=== PATIENT | female | born 1930 | race Caucasian/White ===

== ENCOUNTER → 2016-06-17 | Outpatient (CLI) | payer OTHER ==
[~2016-06-17] MED LIST: ALTACE10 M1 PO; ASA81BEC PO; ASPIRIN EC325 M1 PO; ASPIRIN EC81 M1 PO; ATENOLOL 50 MG50 M1 PO; BYSTOLIC 5 MG5 M1 PO; CALCIUM OYSTER500 MG PO; CARDIZEM CD180 MG PO; CLARITIN10 MG; COUMADIN 1MG TAB1 M1 PO; COZAAR 50 MG TA50 M2 PO; CRESTOR40 MG PO; FISH OIL 1,001000 MG PO; HYDROCODON-ACE1 EAC7 PO; INVOKANA100 MG PO; JANUVIA50 MG; KLOR-CON 10 ER10 MEQ PO; LANOXIN 0.120.125 M1 PO; LASIX 40 MG TAB40 M1 PO; LASIX 40 MG TAB40 MG PO; LEVEMIR SUBQ; LEVOTHYROXINE0.05 MG PO; METFORMIN PO; MOBIC15 MG PO; NEXIUM40 MG PO; NIASPAN ER 101000 M1 PO; NORVASC 5 MG TAB5 MG PO; NOVOPEN 31 EACH SUBQ; PACERONE 200 M200 M1 PO; PRAVACHOL40 MG PO; PRENATAL MULTI1 EAC2 PO; SAVAYSA30 MG PO; SENNA S TABLET1 EACH PO; SYMBICORT160 MCG/4.; VERAPAMIL ER180 MG PO; VITAMIN D1000 UNI1 PO; WELCHOL 625 MG625 MG PO
--- NOTE | ~2016-06-17 | 2DMMODE ---
[facility] [place] [address] 2 D/M-MODE ECHOCARDIOGRAM Name: [address] Room #: REG [facility]#: [id number] Admission: 06/17/16 Attend Phys: Prabhjot Brandon MD Discharge: Date of : 30 Date of Service: 06/17/16 1617 Report #: [id number] THIS REPORT FOR: //name// APPROVED REPORT EXAM: Comprehensive 2D, Doppler, and color-flow Echocardiogram Patient Location: Out-Patient Blood Pressure: 123/57 mmHg HR: 61 bpm Rhythm: NSR Other Information Study Quality: Good Indications Dyspnea Hx: CABG, Afib, HTN, HLP, DM 2D Dimensions RVDd: 40.32 mm LVEF(%): 69.62 (>50%) IVSd: 10.67 (7-11mm) LVOT Diam: 18.31 (18-24mm) LVDd: 41.23 mm PWd: 9.64 (7-11mm) Ascending Aorta: 28.48 mm LVDs: 25.23 (25-40mm) Aortic Root: 29.00 mm Retana's LVEF: 69.62 % Volumes Left Atrial Volume (Systole) Single Plane 4CH: 47.55 mL Single Plane 2CH: 56.95 mL LA ESV Index: 37.00 mL/m2 Aortic Valve AoV Peak Estuardo.: 2.48 m/s AO Peak Gr.: 24.59 mmHg LV Max P.17 mmHg AO V2 VTI: 602.37 mm LV Max: 1.14 m/s Mitral Valve MV PHT: 88.80 ms MV E Max Estuardo.: 1.28 m/s E/A Ratio: 2.5 MV A Estuardo.: 0.51 m/s MV Decel. Time: 306.20 ms [facility] [place] [address] 2 D/M-MODE ECHOCARDIOGRAM Name: [address] Room #: REG [facility]#: [id number] Admission: 06/17/16 Attend Phys: Prabhjot Brandon MD Discharge: Date of : 30 Date of Service: 06/17/16 1617 Report #: [id number] TDI E/Lateral E': 30.00 E/Medial E': 18.00 Pulmonary Valve PV Peak Estuardo.: 1.03 m/s PV Peak Gr.: 4.25 mmHg Tricuspid Valve TR Peak Estuardo.: 3.85 m/s RAP Estimate: 5.00 mmHg TR Peak Gr.: 59.26 mmHg RVSP: 64.00 mmHg Left Ventricle The left ventricle is normal size. There is normal LV segmental wall motion. There is normal left ventricular wall thickness. The left ventricular systolic function is normal. LVEF is 65%. Grade III - reversible restrictive diastolic dysfunction. Right Ventricle Right ventricle is mildly dilated. The right ventricular systolic function is normal. Atria Left atrium is moderately dilated. Right atrium is mildly dilated. Aortic Valve Aortic valve is moderately calcified. Trace aortic regurgitation. Mild aortic stenosis. Mitral Valve Mitral valve leaflets are mildly thickened. Moderate mitral annular calcification. Moderate mitral regurgitation. There is no mitral valve stenosis. Tricuspid Valve The tricuspid valve is normal in structure. There is moderate to severe tricuspid regurgitation. The right atrial pressure is estimated at 5 mmHg. There is moderate pulmonary hypertension with an estimated PAP of 64mmHg. Pulmonic Valve The pulmonary valve is normal in structure. Mild to moderate pulmonic regurgitation. Great Vessels The aortic root is normal in size. The ascending aorta is normal in size. IVC is normal in size and collapses >50% with [facility] [address] [place] [address] 2 D/M-MODE ECHOCARDIOGRAM Name: [address] Room #: REG [facility]#: [id number] Admission: 06/17/16 Attend Phys: Prabhjot Brandon MD Discharge: Date of : 30 Date of Service: 06/17/16 1617 Report #: [id number] inspiration. Pericardium There is no pericardial effusion. <Conclusion> The left ventricular systolic function is normal. Biatrial enlargement LVEF 65%. There is normal LV segmental wall motion. Aortic valve is moderately calcified, mild stenosis, trace aortic regurgitation. Mitral valve leaflets are mildly thickened, moderate mitral annular calcification. Moderate mitral regurgitation. There is moderate to severe tricuspid regurgitation. The right atrial pressure is estimated at 5 mmHg. There is moderate pulmonary hypertension with an estimated PAP of 65mmHg. There is no pericardial effusion. <ELECTRONICALLY SIGNED> By: Kyrie Chu MD, FACC 06/17/16 161 16 16 Kyrie Chu MD, FACC /INF
== END ==
LOC: CV 12:27
DX: R06.02 Shortness of breath (principal)

== ENCOUNTER 2016-09-23 20:48 | Inpatient (IN) | payer OTHER ==
[~2016-09-23] VITALS: Ht 149.9 cm; Wt 54.9 kg
--- NOTE | ~2016-09-23 | S ---
[facility] [place] [address] SURGICAL PATH RPT PROCEDURE Name: [address] Room #: 443-P DIS IN M.R.#: [id number] Admission: 09/23/16 Date of : 30 Discharge: 09/27/16 Report #: [id number] Path Case #: [id number] PATHOLOGY REPORT COLLECTION DATE: 09/26/2016 RECEIVED DATE: 09/26/2016 SUBMITTING PHYS: Dr. Teodoro Wise OTHER PHYS: Dr. Gabbie Santos SPECIMEN(S) RECEIVED: A.Bx of antrum * * * * * * * * * * * * FINAL DIAGNOSIS: Gastric mucosa, antrum, endoscopic biopsy: - Mild reactive gastropathy. - Negative for intestinal metaplasia or atrophy. - Negative for Helicobacter pylori. COMMENT: Helicobacter pylori immunohistochemical stain performed on block A1- negative. (IUV:pit; 09/29/2016) PATHOLOGIST: Yuliana De Santiago M.D. REPORT ELECTRONICALLY SIGNED BY: Yuliana De Santiago M.D. DATE/TIME: 09/29/2016 16:10 * * * * * * * * * * * * GROSS PATHOLOGY: Received in formalin labeled "[address]iel[address], biopsy of antrum," is a segment of myers soft tissue measuring 0.5 cm in maximum dimension. The specimen is submitted entirely in cassette A1. (KAH; 09/27/2016) CLINICAL HISTORY: Anemia, hematemesis INITIAL CPT CODE(S): A; 50332, 16838 Professional services performed by [facility] at [facility] [address], [place] [address] [facility] [address] [place] [address] SURGICAL PATH RPT PROCEDURE Name: [address] Room #: 443-P DIS IN M.R.#: [id number] Admission: 09/23/16 Date of : 30 Discharge: 09/27/16 Report #: [id number] Path Case #: [id number] Technical services performed by [facility] at [address] [place] [address], [facility] [address], [place] [address]. [facility] [address] [address] PHONE: [phone] DIRECTOR: Dean Platt M.D. * * * END OF REPORT * * *
[2016-09-23 20:52] VITALS: BP 155/43
[2016-09-23 21:32] LABS: ABSOLUTE NEUTROPHILS 3.2 thou/uL (1.4-8.2); BASOPHILS 0.3 % (0.0-2.0); EOSINOPHILS 1.8 % (0.0-3.0); HEMATOCRIT 22.5 % (37.0-47.0); HEMOGLOBIN 7.6 gm/dL (12.0-15.0); LYMPHOCYTES 19.6 % (24.0-44.0); MCH 34.1 pg (26.0-34.0); MCHC 33.8 g/dL (28.0-37.0); MCV 100.8 fL (80.0-100.0); MONOCYTES 9.2 % (1.0-8.0); POLYS 69.1 % (36.0-66.0); RBC 2.24 mil/uL (4.20-5.00); RDW 15.5 % (10.5-14.5); WBC 4.7 thou/uL (4.0-11.0)
[2016-09-23 21:38] LABS: CALCIUM 8.7 mg/dL (8.5-10.1); CREATININE 2.4 mg/dL (0.6-1.0); POTASSIUM 4.7 mmol/L (3.5-5.1)
[2016-09-23 21:43] LABS: ALBUMIN 3.6 g/dL (3.4-5.0); TOTAL BILIRUBIN 0.4 mg/dL (<0.1-1.0); TOTAL PROTEIN 7.2 g/dL (6.4-8.2)
[2016-09-23 21:55] LABS: MANUAL DIFF NO
[2016-09-23 22:32] LABS: PLATELET COUNT 75 thou/uL (150-400)
[2016-09-23 23:11] VITALS: BP 154/93
[2016-09-23 23:45] VITALS: BP 152/37
[2016-09-24 03:55] VITALS: BP 114/36
[2016-09-24 06:35] LABS: HEMATOCRIT 21.8 % (37.0-47.0); HEMOGLOBIN 7.3 gm/dL (12.0-15.0)
[2016-09-24 06:59] LABS: CALCIUM 8.7 mg/dL (8.5-10.1); CREATININE 2.2 mg/dL (0.6-1.0); POTASSIUM 4.6 mmol/L (3.5-5.1)
[2016-09-24 07:15] VITALS: BP 114/43
[2016-09-24 10:43] LABS: FOLIC ACID 34.6 ng/mL (8.6-58.9)
[2016-09-24 12:40] VITALS: BP 114/41; BP 131/35
[2016-09-24 13:03] LABS: % SATURATION 13 % (20-39); IRON 41 ug/dL (50-170); TIBC 308 ug/dL (250-450); UIBC 267 ug/dL
[2016-09-24 13:31] LABS: HEMATOCRIT 20.4 % (37.0-47.0)
[2016-09-24 13:35] LABS: HEMOGLOBIN 6.8 gm/dL (12.0-15.0)
[2016-09-24 16:41] VITALS: BP 145/56
[2016-09-24 17:17] LABS: HEMATOCRIT 26.9 % (37.0-47.0)
[2016-09-24 17:23] LABS: HEMOGLOBIN 9.2 gm/dL (12.0-15.0)
[2016-09-24 20:10] VITALS: BP 128/35
[2016-09-24 21:16] LABS: HEMATOCRIT 26.2 % (37.0-47.0); HEMOGLOBIN 9.1 gm/dL (12.0-15.0)
[2016-09-25 00:10] LABS: HEMOGLOBIN 9.2 gm/dL (12.0-15.0)
[2016-09-25 05:37] VITALS: BP 133/43
[2016-09-25 09:02] VITALS: BP 142/41
[2016-09-25 09:39] LABS: HEMATOCRIT 25.9 % (37.0-47.0); HEMOGLOBIN 8.9 gm/dL (12.0-15.0)
[2016-09-25 15:55] VITALS: BP 121/44
[2016-09-25 16:36] LABS: HEMATOCRIT 29.8 % (37.0-47.0); HEMOGLOBIN 10.1 gm/dL (12.0-15.0)
[2016-09-25 20:00] VITALS: BP 142/48
[2016-09-26 04:20] VITALS: BP 122/56
[2016-09-26 05:57] LABS: HEMATOCRIT 24.8 % (37.0-47.0); HEMOGLOBIN 8.4 gm/dL (12.0-15.0); MCH 33.5 pg (26.0-34.0); MCHC 33.9 g/dL (28.0-37.0); MCV 98.9 fL (80.0-100.0); RBC 2.51 mil/uL (4.20-5.00); RDW 15.2 % (10.5-14.5); WBC 3.6 thou/uL (4.0-11.0)
[2016-09-26 06:10] LABS: ALBUMIN 2.9 g/dL (3.4-5.0); CALCIUM 8.7 mg/dL (8.5-10.1); CREATININE 1.7 mg/dL (0.6-1.0); PHOSPHORUS 3.7 mg/dL (2.5-4.9); POTASSIUM 4.3 mmol/L (3.5-5.1)
[2016-09-26 08:50] VITALS: BP 124/42
[2016-09-26 09:33] LABS: ABSOLUTE RETIC COUNT 0.0765 10^6/uL; OBSERVED RETIC COUNT 3.03 % (0.6-2.6)
[2016-09-26 15:48] VITALS: BP 143/40
[2016-09-26 20:23] VITALS: BP 154/48
[2016-09-27 04:06] VITALS: BP 142/50
[2016-09-27 08:20] VITALS: BP 148/48
[2016-09-27] MEDS ORDERED: PROTONIX40 M1 PO (09:13)
[2016-09-27 09:32] VITALS: BP 148/48
== END 2016-09-27 10:30 | disposition home or self-care (01) | DRG 377 ==
LOC: ER 20:48 → 2N 22:44 → EROBS 22:44 → 2N 23:19 → 4S 09-24 14:05
PROVIDERS: Hospitalist; Internal Medicine Gastroenterology; Nurse Practitioner Acute Care; Physician Assistant
DX: K92.1 Melena (principal); N17.0 Acute kidney failure with tubular necrosis; J96.10 Chronic respiratory failure, unspecified whether with hypoxia or hypercapnia; I13.0 Hypertensive heart and chronic kidney disease with heart failure and stage 1 through stage 4 chronic kidney disease, or unspecified chronic kidney disease; I50.32 Chronic diastolic (congestive) heart failure; D61.818 Other pancytopenia; K25.4 Chronic or unspecified gastric ulcer with hemorrhage; E03.9 Hypothyroidism, unspecified; K64.8 Other hemorrhoids; K44.9 Diaphragmatic hernia without obstruction or gangrene; E78.5 Hyperlipidemia, unspecified; M19.90 Unspecified osteoarthritis, unspecified site; J44.9 Chronic obstructive pulmonary disease, unspecified; I25.10 Atherosclerotic heart disease of native coronary artery without angina pectoris; I48.0 Paroxysmal atrial fibrillation; K25.9 Gastric ulcer, unspecified as acute or chronic, without hemorrhage or perforation; K57.30 Diverticulosis of large intestine without perforation or abscess without bleeding; K29.70 Gastritis, unspecified, without bleeding; I35.0 Nonrheumatic aortic (valve) stenosis; I27.2 Other secondary pulmonary hypertension; E11.22 Type 2 diabetes mellitus with diabetic chronic kidney disease; N18.3 Chronic kidney disease, stage 3 (moderate); R13.10 Dysphagia, unspecified; T46.0X5A Adverse effect of cardiac-stimulant glycosides and drugs of similar action, initial encounter; Z90.710 Acquired absence of both cervix and uterus; I25.2 Old myocardial infarction; Z95.1 Presence of aortocoronary bypass graft; Z88.0 Allergy status to penicillin; Z98.49 Cataract extraction status, unspecified eye; Z91.048 Other nonmedicinal substance allergy status; Z88.2 Allergy status to sulfonamides; Z80.3 Family history of malignant neoplasm of breast; Z88.8 Allergy status to other drugs, medicaments and biological substances; Z91.041 Radiographic dye allergy status; Z87.11 Personal history of peptic ulcer disease
CPT/HCPCS: 10081; 10102; 62110; 62900; 70005

== ENCOUNTER 2016-10-31 19:37 | Inpatient (IN) | payer OTHER ==
[~2016-10-31] VITALS: Ht 149.9 cm; Wt 52.8 kg
--- NOTE | ~2016-10-31 | EKG ---
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
--- NOTE | ~2016-10-31 | S ---
[facility] [place] [address] SURGICAL PATH RPT PROCEDURE Name: [address] Room #: 450-P DIS IN M.R.#: [id number] Admission: 10/31/16 Date of : 30 Discharge: 11/05/16 Report #: [id number] Path Case #: [id number] PATHOLOGY REPORT COLLECTION DATE: 11/03/2016 RECEIVED DATE: 11/05/2016 SUBMITTING PHYS: Dr. Clarisa Damian OTHER PHYS: Dr. Jose Nash SPECIMEN(S) RECEIVED: A.Peripheral smear * * * * * * * * * * * * FINAL DIAGNOSIS: Peripheral blood smear: - Pancytopenia including exvm-gd-wohijnrx normocytic and macrocytic anemia, mild leukopenia and moderate thrombocytopenia (see comment). COMMENT: Overall, the peripheral blood has pancytopenia including devl-fb-qoqifblu normocytic and macrocytic anemia, mild leukopenia and moderate thrombocytopenia. The etiology of the findings is unclear based entirely on slide review. Potential causes of pancytopenia include infections, drug reactions and primary bone marrow disorders, such as myelodysplasia. Correlation with clinical history and additional laboratory data is recommended. (CLW:brandon; 11/06/2016) PATHOLOGIST: Bhumi Murphy M.D. REPORT ELECTRONICALLY SIGNED BY: Bhumi Murphy M.D. DATE/TIME: 11/06/2016 20:28 * * * * * * * * * * * * MICROSCOPIC DESCRIPTION: CBC Data (11/03/16): WBC 3,800 /uL, RBC 2.98, hemoglobin 9.9 g/dL, hematocrit 28.4%, MCV 95.1 fL (delta of 102.4 fL), MCH 33.1 pg, MCHC 34.8 g/dL, RDW 17.9%. Platelet count 63,000 / uL. Automated white blood cell differential: segs 71.3%, lymphs 14.3%, monos 11.5%, and eos 1.7%, and basos 1.2%. Peripheral Blood Smear: Cytomorphological examination of the Cha's stained peripheral blood smear confirms the provided data. Red blood cells show gzcp-wp-jozfeftq normocytic and macrocytic anemia with mild anisocytosis. Red blood cells have a dimorphic population. [address] [address] SURGICAL PATH RPT PROCEDURE Name: [address] Room #: 450-P [facility] IN M.R.#: [id number] Admission: 10/31/16 Date of : 30 Discharge: 11/05/16 Report #: [id number] Path Case #: [id number] schistocytes or microspherocytes are seen. White blood cells are mildly decreased in number. They are predominantly segmented neutrophils and are without significant left shift. They have minimal abnormalities including occasional hypogranular forms and rare abnormal nuclear lobation. No blasts or Gary rods are seen. Lymphocytes are predominantly small, round, and mature appearing with condensed chromatin and scant cytoplasm with admixed large granular lymphocytes. On scanning, no markedly atypical lymphoid cells are seen. Monocytes are mature. Platelets are moderately decreased in number and mainly normal in morphology with rare larger platelets noted. GROSS PATHOLOGY: Received are two Cha stained peripheral blood smears, labeled, Lorrie Mariela. CLINICAL HISTORY: This is an 86 year-old woman with pancytopenia. Morphologic review of the peripheral blood smears requested by the patient's physician. INITIAL CPT CODE(S): A; NC Professional services performed by [facility] at [facility] [address], [place] [address] Technical services performed by [facility] at [address] [place] [address], [address], [place] [address]. [facility] [address] [place] [address] PHONE: [phone] DIRECTOR: Dean Platt M.D. * * * END OF REPORT * * *
--- NOTE | ~2016-10-31 | HC ---
[facility] [place] [address] CONSULTATION Name: [address] Room #: 450- ADM IN M.R.#: [id number] Admission: 10/31/16 Attend Phys: Saad Holliday MD Discharge: Date of : 30 Report #: [id number] THIS REPORT FOR: //name// CC: Marek Santos DATE OF SERVICE: 10/31/2016 HISTORY OF PRESENT ILLNESS: The patient is an 86-year-old female with a previous history of peptic ulcer disease, began having melanotic stools recently. However, she is also on oral iron supplements. She has been on Savaysa. Her last dose was the day before yesterday. She takes this for history of congestive heart failure. She has been feeling weak and somewhat dizzy. She does report some abdominal pain. She actually underwent an EGD and colonoscopy by my partner, Dr. Luis Angel Wise, on 09/26/2016 in which she presented with a GI bleed at that time. Colonoscopy showed diverticulosis, no active bleeding, internal hemorrhoids. Upper endoscopy showed several gastric erosions and linear ulcerations, no signs of bleeding at that time. The patient has been taking Prevacid b.i.d. reportedly. Biopsies were obtained to rule out H. pylori, which were negative. The patient's hemoglobin on admission was 8.0 yesterday, dropped to 6.8. She is going to be transfused 2 units of packed cells today, which have been ordered. Her hemoglobin on last admission was in the 8-9 range. She denies any chest pain or shortness of breath currently. She denies any fevers or chills. PAST MEDICAL HISTORY: Previous history of GI bleed, recent EGD and colonoscopy as described above, anemia, history of atrial fibrillation, congestive heart failure. History of hypertension, coronary artery disease status post CABG, asthma, hyperlipidemia, hypothyroidism, arthritis, COPD, pulmonary hypertension. ALLERGIES: HEPARIN AGENTS, IODINE, SULFA, ADHESIVE TAPE AND PENICILLIN. MEDICATIONS: On admission, Protonix 40 b.i.d., vitamin D, Welchol, Cozaar, Synthroid, Claritin, Bystolic, Tradjenta, Lasix, , Savaysa and Symbicort. FAMILY HISTORY: Negative for colon cancer. SOCIAL HISTORY: She denies any tobacco or alcohol use. REVIEW OF SYSTEMS: As per HPI. PHYSICAL EXAMINATION: VITAL SIGNS: Temperature is 98.2, pulse 72, blood pressure 117/32, [place] [address] [address] CONSULTATION Name: [address] Room #: [address] [place] [address] IN M.R.#: [id number] Admission: 10/31/16 Attend Phys: Saad Holliday MD Discharge: Date of : 30 Report #: [id number] GENERAL: She is alert and oriented x 3, in no acute distress. HEENT: Sclerae nonicteric. Oropharynx is clear. NECK: Supple, without lymphadenopathy. CARDIOVASCULAR: Irregularly irregular. CHEST: Clear to auscultation bilaterally. ABDOMEN: Soft. She is mildly tender to palpation in the midepigastrium and periumbilical region. Nondistended, positive bowel sounds. EXTREMITIES: No cyanosis, clubbing or edema. LABORATORY DATA: Sodium 145, potassium 4.4, chloride 114, bicarbonate 19. BUN 52, creatinine 1.9. AST 19, total bilirubin 0.3, calcium 8.6, alkaline phosphatase 74, ALT is 20, albumin 3.0. WBC is 2.8. Hemoglobin 6.8, again this had dropped from 8.0 on admission. It was 8.4 on 09/26/2016, MCV is 102.4, and platelet count is 69. ASSESSMENT AND PLAN: 1. Gastrointestinal bleed, suspect upper etiology. The patient has been on anticoagulation, which has now been held. Agree with transfusion, which has been ordered. We will recommend proceeding with an upper endoscopy today for further evaluation. The patient has had a recent EGD, colonoscopy as described above. We will make further recommendations after endoscopy. Thank you for allowing me to participate in her care. <ELECTRONICALLY SIGNED> By: Marek Lamb MD 11/01/16 1816 1058 1133 Marek Lamb MD /nt
[~2016-10-31 19:37] MED LIST changes: +PROTONIX40 M1 PO
[2016-10-31 19:55] VITALS: BP 174/48
[2016-10-31 20:47] LABS: MCH 34.8 pg (26.0-34.0); MCHC 33.5 g/dL (28.0-37.0); MCV 103.9 fL (80.0-100.0); RBC 2.31 mil/uL (4.20-5.00); RDW 16.1 % (10.5-14.5); WBC 3.8 thou/uL (4.0-11.0)
[2016-10-31 20:48] LABS: MANUAL DIFF YES
[2016-10-31 20:49] LABS: PLATELET COUNT 84 thou/uL (150-400)
[2016-10-31 20:51] LABS: CREATININE 2.4 mg/dL (0.6-1.0); POTASSIUM 5.9 mmol/L (3.5-5.1)
[2016-10-31 20:57] LABS: ALBUMIN 3.7 g/dL (3.4-5.0); TOTAL BILIRUBIN 0.3 mg/dL (<0.1-1.0); TOTAL PROTEIN 7.5 g/dL (6.4-8.2)
[2016-10-31 21:11] LABS: ABSOLUTE NEUTROPHILS 2.6 thou/uL (1.4-8.2); ANISOCYTOSIS 1+; LARGE PLATELETS RARE; MACROCYTES 1+; TOTAL CELL COUNT 100
[2016-11-01] VITALS (8 sets, daily range): BP systolic 117–189; BP diastolic 32–68
[2016-11-01] MEDS ORDERED: TRADJENTA5 MG (01:32)
[2016-11-01] MEDS ORDERED: LASIX 40 MG TAB40 M2 PO (01:33)
[2016-11-01] MEDS ORDERED: MULTAQ400 MG PO (01:36)
[2016-11-01] MEDS ORDERED: SAVAYSA30 MG PO (01:36)
[2016-11-01 08:13] LABS: RDW 16.1 % (10.5-14.5); WBC 2.8 thou/uL (4.0-11.0)
[2016-11-01 08:14] LABS: MCH 35.2 pg (26.0-34.0); MCHC 34.3 g/dL (28.0-37.0); MCV 102.4 fL (80.0-100.0); RBC 1.95 mil/uL (4.20-5.00)
[2016-11-01 08:19] LABS: HEMOGLOBIN 6.8 gm/dL (12.0-15.0)
[2016-11-01 08:20] LABS: HEMATOCRIT 19.9 % (37.0-47.0)
[2016-11-01 08:31] LABS: CALCIUM 8.6 mg/dL (8.5-10.1); CREATININE 1.9 mg/dL (0.6-1.0); PHOSPHORUS 3.9 mg/dL (2.5-4.9)
[2016-11-01 08:34] LABS: POTASSIUM 4.4 mmol/L (3.5-5.1)
[2016-11-02] VITALS (7 sets, daily range): BP systolic 124–187; BP diastolic 42–70
[2016-11-03 04:06] VITALS: BP 173/54
[2016-11-03 06:12] LABS: ABSOLUTE NEUTROPHILS 2.7 thou/uL (1.4-8.2); BASOPHILS 1.2 % (0.0-2.0); EOSINOPHILS 1.7 % (0.0-3.0); HEMATOCRIT 28.4 % (37.0-47.0); HEMOGLOBIN 9.9 gm/dL (12.0-15.0); LYMPHOCYTES 14.3 % (24.0-44.0); MCH 33.1 pg (26.0-34.0); MCHC 34.8 g/dL (28.0-37.0); MONOCYTES 11.5 % (1.0-8.0); POLYS 71.3 % (36.0-66.0); RBC 2.98 mil/uL (4.20-5.00); RDW 17.9 % (10.5-14.5); WBC 3.8 thou/uL (4.0-11.0)
[2016-11-03 06:17] LABS: MCV 95.1 fL (80.0-100.0)
[2016-11-03 06:18] LABS: MANUAL DIFF NO
[2016-11-03 06:25] LABS: CALCIUM 8.3 mg/dL (8.5-10.1); CREATININE 1.3 mg/dL (0.6-1.0); POTASSIUM 3.7 mmol/L (3.5-5.1)
[2016-11-03 07:26] VITALS: BP 151/57
[2016-11-03 07:41] LABS: ANISOCYTOSIS 1+; PLATELET COUNT 63 thou/uL (150-400)
[2016-11-03 07:42] LABS: LARGE PLATELETS FEW
[2016-11-03 12:01] VITALS: BP 178/59
[2016-11-03 15:45] VITALS: BP 171/57
[2016-11-03 19:32] VITALS: BP 148/52
[2016-11-04 04:40] VITALS: BP 151/57
[2016-11-04 06:57] VITALS: BP 178/60
[2016-11-04 13:23] VITALS: BP 155/63
[2016-11-04 16:11] VITALS: BP 134/42
[2016-11-04 19:12] VITALS: BP 166/57
[2016-11-05 04:16] VITALS: BP 156/61
[2016-11-05 07:07] VITALS: BP 178/63
[2016-11-05 10:35] VITALS: BP 178/63
[2016-11-05 11:18] VITALS: BP 170/61
[2016-11-05 11:42] LABS: % SATURATION 30 % (20-39); IRON 63 ug/dL (50-170); TIBC 207 ug/dL (250-450); UIBC 144 ug/dL
[2016-11-05 12:04] LABS: OBSERVED RETIC COUNT 2.62 % (0.6-2.6)
[2016-11-06 00:06] LABS: HEPATITIS C VIRUS AB <0.1 (0.0-0.9); HIV ANTIBODY Non Reactive (Non Reactive)
[2016-11-07 14:08] LABS: A/G RATIO 1.2 (0.7-1.7); ALBUMIN 3.3 g/dL (2.9-4.4); ALPHA 1 0.3 g/dL (0.0-0.4); ALPHA 2 0.8 g/dL (0.4-1.0); BETA 0.9 g/dL (0.7-1.3); GAMMA 0.6 g/dL (0.4-1.8); M-SPIKE Not Observed g/dL (Not Observed)
== END 2016-11-05 12:00 | disposition home or self-care (01) | DRG 377 ==
LOC: ER 19:37 → EROBS 23:01 → 4W 23:01
PROVIDERS: Family Medicine; Internal Medicine Hematology & Oncology; Nurse Practitioner Family; Physician Assistant
PROC: 0DJ08ZZ Inspection of Upper Intestinal Tract, Via Natural or Artificial Opening Endoscopic (ICD-10-PCS; 2016-11-01)
PROC: 30233N1 Transfusion of Nonautologous Red Blood Cells into Peripheral Vein, Percutaneous Approach (ICD-10-PCS; principal; 2016-11-02)
DX: K92.1 Melena (principal); N17.0 Acute kidney failure with tubular necrosis; I13.0 Hypertensive heart and chronic kidney disease with heart failure and stage 1 through stage 4 chronic kidney disease, or unspecified chronic kidney disease; I25.10 Atherosclerotic heart disease of native coronary artery without angina pectoris; E78.5 Hyperlipidemia, unspecified; E03.9 Hypothyroidism, unspecified; M19.90 Unspecified osteoarthritis, unspecified site; J44.9 Chronic obstructive pulmonary disease, unspecified; I48.0 Paroxysmal atrial fibrillation; Z77.22 Contact with and (suspected) exposure to environmental tobacco smoke (acute) (chronic); D64.9 Anemia, unspecified; N18.9 Chronic kidney disease, unspecified; I50.9 Heart failure, unspecified; E11.22 Type 2 diabetes mellitus with diabetic chronic kidney disease; I27.2 Other secondary pulmonary hypertension; E87.5 Hyperkalemia; Z90.710 Acquired absence of both cervix and uterus; I25.2 Old myocardial infarction; Z95.1 Presence of aortocoronary bypass graft; Z98.42 Cataract extraction status, left eye; Z98.41 Cataract extraction status, right eye; Z87.11 Personal history of peptic ulcer disease; Z79.899 Other long term (current) drug therapy; Z91.041 Radiographic dye allergy status; Z88.0 Allergy status to penicillin; Z88.8 Allergy status to other drugs, medicaments and biological substances; Z88.2 Allergy status to sulfonamides; Z91.09 Other allergy status, other than to drugs and biological substances; Z85.828 Personal history of other malignant neoplasm of skin; Z80.3 Family history of malignant neoplasm of breast; Z79.4 Long term (current) use of insulin
CPT/HCPCS: 10040; 62110; 62900

== ENCOUNTER 2017-07-06 14:34 | Emergency (ER) | payer OTHER ==
[~2017-07-06] VITALS: Ht 149.9 cm; Wt 51.3 kg
[~2017-07-06 14:34] MED LIST changes: +LASIX 40 MG TAB40 M2 PO; +MULTAQ400 MG PO; +TRADJENTA5 MG
[2017-07-06] MEDS ORDERED: NORCO 5-325 TA1 EACH PO (15:27)
== END 2017-07-06 15:43 | disposition home or self-care (01) ==
LOC: ER 14:34
DX: S76.111A Strain of right quadriceps muscle, fascia and tendon, initial encounter (principal); I11.0 Hypertensive heart disease with heart failure; I50.9 Heart failure, unspecified; E11.9 Type 2 diabetes mellitus without complications; E78.5 Hyperlipidemia, unspecified; J44.9 Chronic obstructive pulmonary disease, unspecified; I25.810 Atherosclerosis of coronary artery bypass graft(s) without angina pectoris; M19.90 Unspecified osteoarthritis, unspecified site; E03.9 Hypothyroidism, unspecified; Z88.0 Allergy status to penicillin; Z88.2 Allergy status to sulfonamides; Z88.8 Allergy status to other drugs, medicaments and biological substances; W01.0XXA Fall on same level from slipping, tripping and stumbling without subsequent striking against object, initial encounter; Y93.89 Activity, other specified; Y92.89 Other specified places as the place of occurrence of the external cause; Y99.8 Other external cause status

== ENCOUNTER → 2017-07-09 | Outpatient (CLI) | payer OTHER ==
[~2017-07-09] MED LIST changes: +NORCO 5-325 TA1 EACH PO
== END ==
LOC: RAD 12:05
DX: J45.31 Mild persistent asthma with (acute) exacerbation (principal); R06.09 Other forms of dyspnea; Z88.8 Allergy status to other drugs, medicaments and biological substances; Z91.041 Radiographic dye allergy status; Z88.0 Allergy status to penicillin; Z88.2 Allergy status to sulfonamides

== ENCOUNTER 2018-02-17 16:24 | Inpatient (IN) | payer OTHER ==
[~2018-02-17] VITALS: Ht 149.9 cm; Wt 53.5 kg
--- NOTE | ~2018-02-17 | EKG ---
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1930 Requested By: Kyrie Chu Order Number: [id number] MD: Kyrie Chu Measurements Intervals [place] Rate: 97 P: [place]: QRS: 31 QRSD: 95 T: 37 QT: 362 QTc: 460 Interpretive Statements Atrial fibrillation Nonspecific T wave abnormality Abnormal R-wave progression, early transition Compared to ECG 02/18/2018 06:29:42 No significant changes Electronically Signed On 02-19-2018 9:49:38 RADIO ENGINEERING TEACHER by Kyrie Chu [email or web address] <ELECTRONICALLY SIGNED> By: Kyrie Chu MD, [facility] 02/19/18 0949 2 Kyrie Chu MD, FAC /EPI
--- NOTE | ~2018-02-17 | EKG ---
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 : 1930 Requested By: Ami Lindsey Order Number: [id number] MD: Kyrie Chu Measurements Intervals [place] Rate: 110 P: [place]: QRS: 41 QRSD: 79 T: 79 QT: 324 QTc: 439 Interpretive Statements Atrial fibrillation Borderline T abnormalities, anterior leads Compared to ECG 02/10/2017 15:28:55 T-wave abnormality now present Sinus rhythm no longer present Electronically Signed On 02-18-2018 10:47:56 FLOOR INSPECTOR by Kyrie Chu [email or web address] <ELECTRONICALLY SIGNED> By: Kyrie Chu MD, [facility] 02/18/18 1047 170 05 Kyrie Chu MD, [facility] /EPI
--- NOTE | ~2018-02-17 | HC ---
[facility] [place] [address] CONSULTATION Name: [address] Room #: 220-P [facility] IN M.R.#: [id number] Admission: 02/17/18 Attend Phys: Zachariah Bacon MD Discharge: 02/19/18 Date of : 30 Report #: [id number] THIS REPORT FOR: //name// CC: Zachariah Santos REASON FOR CONSULTATION: Atrial fibrillation and chest pain. HISTORY OF PRESENT ILLNESS: The patient is an 87-year-old woman with a complicated history including 5-vessel bypass in 2011; severe COPD, advanced chronic kidney disease, diabetes, paroxysmal atrial fibrillation and myelodysplasia for which she is on chemotherapy. She now presents with midsternal chest pain and palpitations. On presentation, she was found to be in atrial fibrillation with a rapid ventricular response. Troponins were minimally elevated. With rate control, her chest pain has resolved. She did have a nonischemic stress study in 03/2017. Her ejection fraction is normal by echocardiography in 10/2017 with severe biatrial enlargement, moderate aortic valve sclerosis with sopt-fi-towlfbnh aortic stenosis and moderate mitral regurgitation. She had been maintained on Savaysa, although this was discontinued due to recurrent bleeding including a gastric ulcer and what I believe is diverticular bleeding last year. Anticoagulant therapy in light of her recurrent anemia and transfusions is thought to represent a prohibitively high risk. She denies orthopnea or paroxysmal nocturnal dyspnea. No history of near syncope or syncope. Allery: included adhesives, enoxaparin, heparin, iodine, penicillin, statins and sulfa. MEDICINES: Include Welchol 3 tablets twice a day; dronedarone 400 mg twice daily, she has been off of this for the past month; levothyroxine 75 mcg daily; Tradjenta; Cozaar 100 mg daily; Bystolic 10 mg daily; Protonix; potassium and torsemide 40 mg twice daily. PAST MEDICAL HISTORY: Has been reviewed and includes a history of bypass surgery, left hip replacement, hysterectomy, laparoscopic colon resection, severe COPD, dyslipidemia, hypothyroidism, myelodysplasia, cervical spondylosis and diabetes. SOCIAL HISTORY: She is a nonsmoker. She cares for her who is on hospice at home. FAMILY HISTORY: Noncontributory. REVIEW OF SYSTEMS: All systems negative except as that noted above. PHYSICAL EXAMINATION: [facility] [address] [place] [address] CONSULTATION Name: [address] Room #: 220-P [facility] IN M.R.#: [id number] Admission: 02/17/18 Attend Phys: Zachariah Bacon MD Discharge: 02/19/18 Date of : 30 Report #: [id number] GENERAL: Reveals a pleasant woman who is in no distress. VITAL SIGNS: Blood pressure is 138/60, heart rate of 78 and irregular, respirations unlabored at 18. HEENT: There are neither xanthelasma, subcutaneous xanthomata, oral mucosal or digital cyanosis or kyphoscoliosis present. CHEST: Reveals diminished breath sounds at both bases. CARDIAC: Reveals an irregularly irregular rhythm with normal S1 and S2. A 2/6 systolic murmur at the base. ABDOMEN: Soft and nontender. EXTREMITIES: Without cyanosis, clubbing or edema. Radial pulses are 2+. NEUROLOGIC: She is alert with a nonfocal exam. LABORATORY DATA: EKG: Atrial fibrillation with a moderate ventricular response. Venous Doppler was negative for clot. Chest x-ray: Cardiomegaly. Sodium 140, potassium 5.0 and creatinine 2.1. ProBNP of 7000. Troponin 0.8. White count 2.0, hemoglobin 8, hematocrit 24 and platelet count 49. IMPRESSION: 1. Atrial fibrillation with a rapid ventricular response. 2. Coronary artery disease with prior bypass in 2001 with recent nonischemic stress study in 03/2017. 3. Elevated troponin consistent with type 2 DC in the setting of anemia, atrial fibrillation, renal failure and COPD. 4. Peptic ulcer disease; diverticulosis. 5. Myelodysplastic syndrome; pancytopenia. 6. Chronic kidney disease, stage 4. 7. Severe COPD with history of pulmonary hypertension. 8. Chronic diastolic heart failure; mild to moderate , moderate MR. 9. Diabetes. 10 Hypercoagulable. RECOMMENDATIONS: 1. Cardizem for rate control. Resume dronedarone. 2. This atrial fibrillation may have been precipitated by her being off of antiarrhythmic therapy for the past several weeks. 3. History of gastrointestinal bleeding in the past makes reinstitution of anticoagulants problematic and probably contraindicated. She has received multiple blood transfusions within the past year. Thank you for asking me to participate in this complicated woman. <ELECTRONICALLY SIGNED> By: Kyrie Chu MD, [facility] 02/22/18 0823 0945 1019 Kyrie Chu MD, FACC /nt
--- NOTE | ~2018-02-17 | EKG ---
[address] [address] ELECTROCARDIOGRAM REPORT Name: [address] Room #: 215-P ADM IN M.R.#: [id number] Admission: 02/17/18 Attend Phys: Zachariah Bacon MD Discharge: Date of : 30 Report #: [id number] THIS REPORT FOR: //name// 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
[2018-02-17 16:29] VITALS: BP 115/44
[2018-02-17 17:22] LABS: BE(vivo) -2.3 mmol/L (-2 to +3); HCO3 22.3 mmol/L (22.0-26.0); PO2 75.3 mmHg (80.0-100.0); pH 7.387 (7.360-7.450)
[2018-02-17 17:45] LABS: HEMOGLOBIN 10.6 gm/dL (12.0-15.0); MCH 34.4 pg (26.0-34.0); MCHC 34.2 g/dL (28.0-37.0); MCV 100.8 fL (80.0-100.0); RBC 3.08 mil/uL (4.20-5.00); RDW 17.9 % (10.5-14.5); WBC 2.8 thou/uL (4.0-11.0)
[2018-02-17 17:54] LABS: PROTIME 10.7 Seconds (9.3-11.4)
[2018-02-17 17:58] LABS: CALCIUM 9.3 mg/dL (8.5-10.1); CREATININE 2.3 mg/dL (0.6-1.0); POTASSIUM 4.9 mmol/L (3.5-5.1)
[2018-02-17 18:06] LABS: ALBUMIN 3.7 g/dL (3.4-5.0); TOTAL BILIRUBIN 0.3 mg/dL (<0.1-1.0); TOTAL PROTEIN 6.9 g/dL (6.4-8.2)
[2018-02-17 18:13] LABS: TROPONIN-I 1.07 ng/mL (<0.06)
[2018-02-17 18:28] LABS: ABSOLUTE NEUTROPHILS 1.9 thou/uL (1.4-8.2)
[2018-02-17 18:30] LABS: LARGE PLATELETS FEW; PLATELET COUNT 55 thou/uL (150-400)
[2018-02-17 19:39] VITALS: BP 127/59
[2018-02-17 20:36] VITALS: BP 125/63
[2018-02-18 00:06] VITALS: BP 132/64
[2018-02-18 00:23] VITALS: BP 132/64
[2018-02-18 03:09] LABS: HEMATOCRIT 24.4 % (37.0-47.0); RBC 2.39 mil/uL (4.20-5.00)
[2018-02-18 03:12] LABS: MCH 33.7 pg (26.0-34.0); MCV 101.9 fL (80.0-100.0); RDW 18.2 % (10.5-14.5)
[2018-02-18 03:13] LABS: ANION GAP 3 mmol/L (7-16); BUN 71 mg/dL (7-18); CALCIUM 8.3 mg/dL (8.5-10.1); CHLORIDE 111 mmol/L (98-107); CO2 26 mmol/L (21-32); CREATININE 2.1 mg/dL (0.6-1.0); GLUCOSE 231 mg/dL (74-106); SODIUM 140 mmol/L (136-145)
[2018-02-18 04:20] VITALS: BP 99/49
[2018-02-18 04:43] LABS: CHOLESTEROL 188 mg/dL (<200); HDL CHOLESTEROL 38 mg/dL (>40); LDL CHOLESTEROL 113 mg/dL (<100); TC:HDL 4.9 Ratio (Not establshd); TRIGLYCERIDE 186 mg/dL (<150); VLDL 37 mg/dL (<40)
[2018-02-18 04:44] LABS: SERUM ASSESSMENT Clear
[2018-02-18 11:09] LABS: % SATURATION 20 % (20-39); IRON 50 ug/dL (50-170); TIBC 246 ug/dL (250-450)
[2018-02-18 11:47] VITALS: BP 106/44
[2018-02-18 13:53] LABS: HEMATOCRIT 28.3 % (37.0-47.0); HEMOGLOBIN 9.3 gm/dL (12.0-15.0)
[2018-02-18 14:46] VITALS: BP 110/46
[2018-02-18 18:31] VITALS: BP 114/55
[2018-02-19 07:15] LABS: HEMOGLOBIN 8.6 gm/dL (12.0-15.0); MCV 102.3 fL (80.0-100.0)
[2018-02-19 07:16] LABS: HEMATOCRIT 25.5 % (37.0-47.0); MCH 34.6 pg (26.0-34.0); MCHC 33.8 g/dL (28.0-37.0); RBC 2.49 mil/uL (4.20-5.00); RDW 18.1 % (10.5-14.5)
[2018-02-19 07:31] LABS: CALCIUM 8.3 mg/dL (8.5-10.1); CREATININE 2.1 mg/dL (0.6-1.0); POTASSIUM 4.9 mmol/L (3.5-5.1)
[2018-02-19 08:08] VITALS: BP 136/65
[2018-02-19 12:43] VITALS: BP 136/65
== END 2018-02-19 14:07 | disposition home or self-care (01) | DRG 280 ==
LOC: ER 16:24 → 2N 18:52 → EROBS 18:52 → 2N 19:46 → SICU 02-18 17:07
PROVIDERS: Hospitalist; Internal Medicine; Nurse Practitioner Family; Physician Assistant
DX: I21.4 Non-ST elevation (NSTEMI) myocardial infarction (principal); E43 Unspecified severe protein-calorie malnutrition; N18.4 Chronic kidney disease, stage 4 (severe); D61.818 Other pancytopenia; D68.59 Other primary thrombophilia; I50.32 Chronic diastolic (congestive) heart failure; I13.0 Hypertensive heart and chronic kidney disease with heart failure and stage 1 through stage 4 chronic kidney disease, or unspecified chronic kidney disease; N17.9 Acute kidney failure, unspecified; J45.909 Unspecified asthma, uncomplicated; I48.0 Paroxysmal atrial fibrillation; E11.22 Type 2 diabetes mellitus with diabetic chronic kidney disease; J44.9 Chronic obstructive pulmonary disease, unspecified; Z96.642 Presence of left artificial hip joint; E78.5 Hyperlipidemia, unspecified; E03.9 Hypothyroidism, unspecified; K57.90 Diverticulosis of intestine, part unspecified, without perforation or abscess without bleeding; K27.9 Peptic ulcer, site unspecified, unspecified as acute or chronic, without hemorrhage or perforation; I35.1 Nonrheumatic aortic (valve) insufficiency; D46.9 Myelodysplastic syndrome, unspecified; I25.10 Atherosclerotic heart disease of native coronary artery without angina pectoris; M19.90 Unspecified osteoarthritis, unspecified site; Z77.22 Contact with and (suspected) exposure to environmental tobacco smoke (acute) (chronic); Z87.81 Personal history of (healed) traumatic fracture; Z80.3 Family history of malignant neoplasm of breast; Z90.710 Acquired absence of both cervix and uterus; Z90.49 Acquired absence of other specified parts of digestive tract; I25.2 Old myocardial infarction; Z95.1 Presence of aortocoronary bypass graft; Z88.0 Allergy status to penicillin; Z88.2 Allergy status to sulfonamides; Z88.8 Allergy status to other drugs, medicaments and biological substances; Z91.041 Radiographic dye allergy status; Z98.49 Cataract extraction status, unspecified eye; Z28.21 Immunization not carried out because of patient refusal
CPT/HCPCS: 10081; 15002

== ENCOUNTER 2018-02-27 14:24 | Inpatient (IN) | payer OTHER ==
[~2018-02-27] VITALS: Ht 149.9 cm; Wt 54.0 kg
--- NOTE | ~2018-02-27 | HC ---
[facility] [place] [address] CONSULTATION Name: [address] Room #: 205-P ADM IN M.R.#: [id number] Admission: 02/27/18 Attend Phys: Gabbie Cuellar Discharge: Date of : 30 Report #: [id number] THIS REPORT FOR: //name// CC: Gabbie Cuellar Jose Tom DATE OF SERVICE: 02/28/2018 TYPE OF REPORT: Cardiology consultation. INDICATION: Atrial fibrillation. HISTORY OF PRESENT ILLNESS: This is an 87-year-old female with a history of CABG, COPD, paroxysmal atrial fibrillation and myelodysplasia syndrome; presenting with chest pains and palpitations. The patient was recently hospitalized approximately 10 days ago with similar complaints. The chest pain was felt to be related to the rapid ventricular rate from the AFib. The patient was started on Cardizem and Multaq was reinstituted. She had been taking this medication in the past but had not done so prior to her last admission. A stress test from March 2017 was nonischemic. She had an echocardiogram in October 2017 revealing normal LV systolic function, [id number] aortic stenosis and moderate mitral regurgitation. The patient was discharged home but continued to have palpitations. She was supposed to get chemotherapy for her MDS last Thursday. However, this was not performed due to the rapid heart rate. She saw her primary care physician on Thursday, noted a fast heart rate. It was decided to change Bystolic to atenolol. She presents last evening with complaints of palpitations and chest pain. The chest pain is improved when she sits up and is exacerbated with deep inspiration. She reports having a cough but denies any fever, chills or diarrhea. PAST MEDICAL HISTORY: 1. CABG. 2. COPD. 3. Chronic kidney disease. 4. Atrial fibrillation. 5. Myelodysplasia. 6. Diabetes mellitus. ALLERGIES: Include ADHESIVES, ENOXAPARIN, HEPARIN, PENICILLIN, STATINS and SULFA. MEDICATIONS: Include Multaq; Bystolic, changed to atenolol a day before admission; losartan and torsemide. [facility] [address] [place] [address] CONSULTATION Name: [address] Room #: 205-P [facility] IN M.R.#: [id number] Admission: 02/27/18 Attend Phys: Gabbie Tavarez Lovedank Discharge: Date of : 30 Report #: [id number] SOCIAL HISTORY: Negative for tobacco use, the patient cares for her who is on hospice at home. FAMILY HISTORY: Negative for premature CAD. REVIEW OF SYSTEMS: A full 10-point review of systems performed. Only the pertinent positives and negatives are described in the HPI. PHYSICAL EXAMINATION: VITAL SIGNS: Blood pressure is 118/70 and heart rate is 110 beats per minute. GENERAL APPEARANCE: Elderly appearing female, in no acute distress. HEENT: Normocephalic and atraumatic. Oral mucosa moist. NECK: Supple. LUNGS: Diminished breath sounds throughout. CARDIAC: Irregularly irregular. S1 and S2 positive, 2/6 systolic murmur. ABDOMEN: Soft and nontender. EXTREMITIES: No cyanosis and no edema. NEUROLOGICAL: Alert and oriented x 3. RADIOLOGICAL DATA: ECG reveals atrial fibrillation with a heart rate of 128 beats per minute. LABORATORY VALUES: White count is 3.7; hemoglobin is 10.1 and platelet count is 63,000. BUN is 89 and creatinine is 2.2. Troponin is negative x 1. ASSESSMENT AND PLAN: 1. Atrial fibrillation with a rapid ventricular rate, the heart rate is approximately 110 beats per minute while at bed rest. The plan is to continue with atenolol 50 mg twice a day. May need Cardizem as well. We will discontinue Multaq, as the rhythm remains in atrial fibrillation. She is not on anticoagulation therapy, has a prior history of gastrointestinal bleed while on Savaysa. She also has a prior history of digoxin toxicity and this will be avoided. 2. Chest pain, prior history of coronary artery bypass grafting. Initial troponin is negative and there are no acute ST-segment changes on the EKG. The etiology is probably related to musculoskeletal/pericarditic etiology. Continue with medical therapy. She had a negative stress test earlier this year. 3. Dyspnea/chronic obstructive pulmonary disease, she does not have any evidence for heart failure. She does have a history of chronic obstructive pulmonary disease and would benefit from a Pulmonary evaluation. 4. Chronic kidney disease, the creatinine is at baseline. However, the BUN is elevated. She is currently on torsemide, we will decrease or hold at this time. The patient does not have any evidence for fluid overload on examination. [facility] [address] [place] [address] CONSULTATION Name: [address] Room #: 205-P ADM IN M.R.#: [id number] Admission: 02/27/18 Attend Phys: Gabbie Cuellar Discharge: Date of : 30 Report #: [id number] 5. Myelodysplastic syndrome, hemoglobin appears to be stable at this time. Continue to follow. <ELECTRONICALLY SIGNED> By: Manny Dallas MD 03/01/18 0807 1108 2127 Manny Dallas MD /nt
--- NOTE | ~2018-02-27 | 2DMMODE ---
[facility] [address] [place] [address] 2 D/M-MODE ECHOCARDIOGRAM Name: [address] Room #: 205-P ADM IN M.R.#: [id number] Admission: 02/27/18 Attend Phys: Gabbie Aleman Discharge: Date of : 30 Date of Service: 03/02/18 1520 Report #: [id number] THIS REPORT FOR: //name// APPROVED REPORT Study performed: 03/02/2018 09:30:27 EXAM: Comprehensive 2D, Doppler, and color-flow Echocardiogram Patient Location: Bedside Room #: [facility] Status: routine BSA: 1.48 HR: 95 bpm BP: 139/91 mmHg Rhythm: Atrial Fibrillation Other Information Study Quality: Adequate Indications Aortic Valve Disease COPD Atrial Fibrillation CAD 2D Dimensions RVDd: 33.46 mm IVSd: 10.12 (7-11mm) LVOT Diam: 18.47 (18-24mm) LVDd: 45.36 mm PWd: 8.56 (7-11mm) Ascending Ao: 21.92 (22-36mm) LVDs: 30.23 (25-40mm) Aortic Root: 24.83 mm IVC: 23.00 mm Volumes Left Atrial Volume (Systole) Single Plane 4CH: 61.18 mL Single Plane 2CH: 75.96 mL LA ESV Index: 52.00 mL/m2 Aortic Valve AoV Peak Estuardo.: 2.06 m/s AO Peak Gr.: 16.93 mmHg LVOT Max P.03 mmHg AO Mean Gr.: 9.54 mmHg LVOT Mean P.57 mmHg AO V2 Mean: 1.46 m/s LVOT Max V: 0.87 m/s AO V2 VTI: 43.64 cm LVOT Mean V: 0.58 m/s ANA (VTI): 1.18 cm2 LVOT V1 VTI: 19.25 cm [facility] [place] [address] 2 D/M-MODE ECHOCARDIOGRAM Name: [address] Room #: 205-P [facility] IN M.R.#: [id number] Admission: 02/27/18 Attend Phys: Gabbie Aleman Discharge: Date of : 30 Date of Service: 03/02/18 1520 Report #: [id number] ANA Vmax: 1.13 cm2 SV (LVOT): 51.56 mL Pulmonary Valve PV Peak Estuardo.: 0.78 m/s PV Peak Gr.: 2.46 mmHg Tricuspid Valve TR Peak Estuardo.: 3.96 m/s TR Peak Gr.: 62.87 mmHg PA Pressure: 77.00 mmHg Left Ventricle The left ventricle is normal size. There is normal left ventricular wall thickness. The left ventricular systolic function is normal. The left ventricular ejection fraction is within the normal range. LVEF is 55-60%. This study is not technically sufficient to allow evaluation of the LV diastolic function due to atrial fibrillation. Right Ventricle The right ventricle is normal size. The right ventricular systolic function is normal. Atria Left atrium is dilated. Right atrium is dilated. Aortic Valve The aortic valve is normal in structure. Aortic valve is calcified. No aortic regurgitation is present. Mild aortic stenosis. Mitral Valve The mitral valve is normal in structure. There is mitral annular calcification. Moderate mitral regurgitation. No evidence of mitral valve stenosis. Tricuspid Valve The tricuspid valve is normal in structure. There is moderate tricuspid regurgitation. Estimated PAP 77 mmHg. There is moderate-severe pulmonary hypertension. Pulmonic Valve The pulmonary valve is normal in structure. Trace pulmonic regurgitation. Great Vessels The aortic root is normal in size. The inferior vena cava is dilated [address] [address] 2 D/M-MODE ECHOCARDIOGRAM Name: [address] Room #: 205-P [facility] IN M.R.#: [id number] Admission: 02/27/18 Attend Phys: Gabbie Aleman Discharge: Date of : 30 Date of Service: 03/02/18 1520 Report #: [id number] with no inspiratory collapse. Pericardium There is no pericardial effusion. <Conclusion> The left ventricle is normal size. LVEF is 55-60%. This study is not technically sufficient to allow evaluation of the LV diastolic function due to atrial fibrillation. The right ventricle is normal size. Left atrium is dilated. Right atrium is dilated. The aortic valve is normal in structure. Aortic valve is calcified. Mild aortic stenosis. The mitral valve is normal in structure. There is mitral annular calcification. Moderate mitral regurgitation. There is moderate tricuspid regurgitation. Estimated PAP 77 mmHg. There is moderate-severe pulmonary hypertension. The aortic root is normal in size. There is no pericardial effusion. <ELECTRONICALLY SIGNED> By: Ethan Isbell MD, FACC 03/02/18 1520 1520 152 Ethan Isbell MD, FACC /INF
--- NOTE | ~2018-02-27 | EKG ---
[address] [address] ELECTROCARDIOGRAM REPORT Name: [address] Room #: 205-P ADM IN M.R.#: [id number] Admission: 02/27/18 Attend Phys: Gabbie Cuellar Discharge: Date of : 30 Report #: [id number] THIS REPORT FOR: //name// [facility] ED Test Date: 2018-02-27 Test Time: 14:32:35 Pat Name: [address] Department: Room: 205 Gender: F Planer Hand: PATRICIA : 1930 Requested By: Fermin Shaw Order Number: [id number] MD: Manny Dallas Measurements Intervals [place] Rate: 128 P: [place]: QRS: 45 QRSD: 85 T: 204 QT: 337 QTc: 492 Interpretive Statements Atrial fibrillation Repolarization abnormality, prob rate related Compared to ECG 02/19/2018 07:43:06 T-wave abnormality no longer present Electronically Signed On 02-28-2018 10:22:45 EXECUTIVE DIRECTOR by Manny Dallas [email or web address] <ELECTRONICALLY SIGNED> By: Manny Dallas MD 02/28/18 1022 1432 1432 MD CLAUDIA Lim
--- NOTE | ~2018-02-27 | HC ---
[facility] [place] [address] CONSULTATION Name: [address] Room #: 205-P [facility] IN M.R.#: [id number] Admission: 02/27/18 Attend Phys: Gabbie Cuellar Discharge: Date of : 30 Report #: [id number] THIS REPORT FOR: //name// CC: Gabbie Santos DATE OF SERVICE: 02/28/2018 PRIMARY CARE PHYSICIAN: Jose Santos MD. REFERRAL PHYSICIAN: Dr. Cuellar. REASON FOR REFERRAL: Dyspnea. HISTORY OF PRESENT ILLNESS: The patient is an 87-year-old white female who is well known to this physician, who presents to the Emergency Room with progressive dyspnea and chest pain. A pulmonary consultation was requested. The patient is followed longitudinally in the pulmonary office for mild COPD/asthma. She has been doing fairly well from pulmonary standpoint. Her most recent active medical problem is remote diagnosis of breast cancer, undergoing chemo and radiation therapy. She was also felt to have possibility of multiple myeloma. She still has ongoing evaluation at [facility]. She was in her usual state of health until yesterday. She began to notice increasing dyspnea and chest pain. She felt her chest was pounding. For that reason, she presented to the Emergency Room. Chest x-ray on admission was grossly unremarkable other than cardiomegaly without obvious infiltrates. Her previous PFT showed an FEV1 of 0.4 liters, 34% predicted. PAST MEDICAL HISTORY: Notable for anemia, atrial fibrillation, history of gastric ulcers, breast cancer as mentioned above, diagnosed in 04/2017 undergoing left lumpectomy, status post radiation and chemotherapy, coronary artery disease, undergoing bypass surgery, mitral regurgitation, cervical spondylosis, chronic kidney disease stage 4, diabetes mellitus type 2, history of diverticulitis, gastroesophageal reflux disease, hiatal hernia, hypertension, hypothyroidism, hypocholesterolemia, irritable bowel syndrome, benign lung nodule, right lung field and pulmonary hypertension, past shoulder fracture. PAST SURGICAL HISTORY: As mentioned above including carpal tunnel surgery, cataract surgery, coronary artery bypass surgery x 5 in 2011, hip surgery in 2010, hysterectomy, laparoscopic colon resection, rotator cuff repair, and tonsillectomy. ALLERGIES: DILTIAZEM, LOVENOX, HEPARIN PRODUCTS, IODINE, PENICILLIN, STATINS, [facility] [address] [place] [address] CONSULTATION Name: [address] Room #: 205-P ADM IN M.R.#: [id number] Admission: 02/27/18 Attend Phys: Gabbie Cuellar Discharge: Date of : 30 Report #: [id number] SULFA DRUGS, REACTIONS UNSPECIFIED. SHE DEVELOPED A RASH DUE TO ADHESIVE TAPES. HOME MEDICATIONS: Reviewed. This include DuoNeb q.i.d. p.r.n., vitamin C, Welchol, Multaq, Synthroid, Tradjenta, Claritin, Cozaar, Bystolic, Protonix, Demadex, potassium supplements. FAMILY HISTORY: Noncontributory. Father and mother . SOCIAL HISTORY: She has never smoked. She does not drink. She is . is ill with prostatic cancer. REVIEW OF SYSTEMS: As mentioned above, otherwise 10-point system review negative. PHYSICAL EXAMINATION: GENERAL: She is awake, alert, mild distress, she appears mildly dyspneic. VITAL SIGNS: Temperature is 97 degrees Fahrenheit, pulse is 90, respiratory rate is 20, blood pressure is 100/56 mmHg, saturation 92%. HEENT: Normocephalic, atraumatic. NECK: Supple, no lymphadenopathy or thyromegaly. CHEST: Breath sounds are fair with mild expiratory wheezes. CARDIAC: Irregularly irregular. Normal S1, S2. There are no obvious murmurs or gallop. Pulses are 2+/4+ bilaterally. ABDOMEN: Soft, nontender, no organomegaly or masses felt. GENITOURINARY: Deferred. RECTAL: Deferred. EXTREMITIES: There is no edema, cyanosis or clubbing. LABORATORY DATA: Chest x-ray as mentioned above showing cardiomegaly, no obvious consolidation on infiltrates. Electrolytes: Sodium 137, potassium 3.9, chloride 101, CO2 of 27, BUN is 89, creatinine is 2.2. WBC 3700, hemoglobin 10.1. Troponin is normal. IMPRESSION: 1. Dyspnea in this 87-year-old white female, probably secondary to underlying asthma/chronic obstructive pulmonary disease with atrial fibrillation. 2. Atrial fibrillation with rapid ventricular response. 3. Azotemia felt to be volume depletion. Currently on IV fluids. 4. 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 Her pulmonary functions has deteriorated over the last year or so, likely related to weakness. Her baseline FEV1 now is at 0.46 liter or 34% predicted, appears to be mild wheezing on today's examination. 5. Chronic kidney disease. 6. Recent diagnosis of left breast cancer, status post left lumpectomy, radiation and chemotherapy, now she has been followed for possible leukemia, pancytopenia. [facility] [address] [place] [address] CONSULTATION Name: [address] Room #: 205-P ADM IN M.R.#: [id number] Admission: 02/27/18 Attend Phys: Gabbie Cuellar Discharge: Date of : 30 Report #: [id number] 7. Diabetes mellitus type 2. 8. Coronary artery disease, status post coronary artery bypass surgery. 9. Mitral insufficiency. 10. Pulmonary hypertension due to underlying pulmonary disorder. Pulmonary artery pressure on a recent echocardiogram measured about 99 mmHg. She was found to have severe mitral regurgitation. This is related to valvular heart disease. RECOMMENDATION AND DISCUSSION: We will continue bronchodilators, low dose corticosteroids. Agree with current plans for gentle diuresis. Monitor renal function closely. DVT and GI prophylaxis recommended. 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 No specific treatment is necessary at this time. Thank you for this consultation. <ELECTRONICALLY SIGNED> By: Prabhjot Brandon MD 03/01/18 1407 1359 2204 Prabhjot Brandon MD /nt
[2018-02-27 14:25] VITALS: BP 117/115; BP 122/61
[2018-02-27 14:59] LABS: ABSOLUTE NEUTROPHILS 2.5 thou/uL (1.4-8.2); EOSINOPHILS 1.5 % (0.0-3.0); HEMOGLOBIN 10.1 gm/dL (12.0-15.0); LYMPHOCYTES 22.1 % (24.0-44.0); MCH 34.8 pg (26.0-34.0); MCHC 34.7 g/dL (28.0-37.0); MCV 100.2 fL (80.0-100.0); MONOCYTES 6.9 % (1.0-8.0); POLYS 67.5 % (36.0-66.0); RBC 2.89 mil/uL (4.20-5.00); RDW 16.7 % (10.5-14.5); WBC 3.7 thou/uL (4.0-11.0)
[2018-02-27] MEDS ORDERED: ATENOLOL 50MG T50 M1 PO (15:01)
[2018-02-27 15:02] LABS: ANION GAP 9 mmol/L (7-16); BUN 89 mg/dL (7-18); CHLORIDE 101 mmol/L (98-107); CO2 27 mmol/L (21-32); CREATININE 2.2 mg/dL (0.6-1.0); GLUCOSE 165 mg/dL (74-106); POTASSIUM 3.9 mmol/L (3.5-5.1); SODIUM 137 mmol/L (136-145)
[2018-02-27] MEDS ORDERED: DEMADEX20 MG PO (15:03)
[2018-02-27 15:11] LABS: TROPONIN-I <0.06 ng/mL (<0.06)
[2018-02-27 16:08] LABS: PLATELET COUNT 63 thou/uL (150-400)
[2018-02-27 18:21] VITALS: BP 112/40
[2018-02-27 19:17] VITALS: BP 129/87
[2018-02-27 20:00] VITALS: BP 115/42
[2018-02-27] MEDS ORDERED: ANASTROZOLE1 MG PO (22:37)
[2018-02-27] MEDS ORDERED: PAXIL10 MG (22:38)
[2018-02-28 00:02] VITALS: BP 129/80
[2018-02-28 05:27] VITALS: BP 103/58
[2018-02-28 07:31] VITALS: BP 103/70
[2018-02-28 11:48] VITALS: BP 102/56
[2018-02-28 19:12] VITALS: BP 147/83
[2018-03-01 04:11] LABS: ALBUMIN 3.3 g/dL (3.4-5.0); ANION GAP 11 mmol/L (7-16); BUN 67 mg/dL (7-18); CALCIUM 8.6 mg/dL (8.5-10.1); CHLORIDE 104 mmol/L (98-107); CO2 22 mmol/L (21-32); CREATININE 1.6 mg/dL (0.6-1.0); GLUCOSE 223 mg/dL (74-106); POTASSIUM 4.8 mmol/L (3.5-5.1); SODIUM 137 mmol/L (136-145); TROPONIN-I <0.06 ng/mL (<0.06)
[2018-03-01 04:20] VITALS: BP 137/70
[2018-03-01 08:44] VITALS: BP 137/64
[2018-03-01 12:22] VITALS: BP 115/67
[2018-03-01 16:00] VITALS: BP 138/73
[2018-03-01 16:29] LABS: CALCIUM 8.9 mg/dL (8.5-10.1); CREATININE 1.9 mg/dL (0.6-1.0); TROPONIN-I 0.45 ng/mL (<0.06)
[2018-03-01 19:42] VITALS: BP 147/85
[2018-03-02 04:25] LABS: ABSOLUTE NEUTROPHILS 7.1 thou/uL (1.4-8.2); BASOPHILS 0.3 % (0.0-2.0); HEMATOCRIT 28.9 % (37.0-47.0); HEMOGLOBIN 9.8 gm/dL (12.0-15.0); LYMPHOCYTES 5.9 % (24.0-44.0); MCH 34.3 pg (26.0-34.0); MCHC 33.9 g/dL (28.0-37.0); MCV 101.2 fL (80.0-100.0); MONOCYTES 2.1 % (1.0-8.0); PLATELET COUNT 59 thou/uL (150-400); POLYS 91.7 % (36.0-66.0); RBC 2.86 mil/uL (4.20-5.00); RDW 16.8 % (10.5-14.5); WBC 7.7 thou/uL (4.0-11.0)
[2018-03-02 04:53] VITALS: BP 150/88
[2018-03-02 04:55] LABS: POLYCHROMASIA OCCASIONAL
[2018-03-02 04:56] LABS: ANISOCYTOSIS 1+
[2018-03-02 07:44] VITALS: BP 139/91
[2018-03-02 08:27] VITALS: BP 139/91
[2018-03-02 11:50] VITALS: BP 136/86
[2018-03-02 15:03] VITALS: BP 132/91
[2018-03-02 19:42] VITALS: BP 151/84
[2018-03-03 05:40] VITALS: BP 120/64
[2018-03-03 07:29] VITALS: BP 118/65
[2018-03-03 09:06] LABS: CALCIUM 9.2 mg/dL (8.5-10.1); POTASSIUM 4.8 mmol/L (3.5-5.1)
[2018-03-03 12:12] VITALS: BP 124/60
[2018-03-03 15:02] VITALS: BP 156/66
[2018-03-03 19:53] VITALS: BP 142/60
[2018-03-04 04:06] LABS: ALBUMIN 3.3 g/dL (3.4-5.0); CALCIUM 8.7 mg/dL (8.5-10.1); CREATININE 2.1 mg/dL (0.6-1.0); PHOSPHORUS 4.8 mg/dL (2.5-4.9); POTASSIUM 4.6 mmol/L (3.5-5.1)
[2018-03-04 04:52] VITALS: BP 123/56
[2018-03-04 08:24] VITALS: BP 118/70
[2018-03-04 08:25] VITALS: BP 118/70
[2018-03-04] MEDS ORDERED: ATENOLOL 50MG T50 M1 PO (09:15)
[2018-03-04] MEDS ORDERED: CARDIZEM CD120 MG PO (09:16)
[2018-03-04] MEDS ORDERED: CARDIZEM CD240 MG PO (09:16)
[2018-03-04] MEDS ORDERED: CEFUROXIME250 MG PO (09:18)
[2018-03-04] MEDS ORDERED: PREDNISONE 20 M20 MG PO (09:18)
[2018-03-04 10:45] VITALS: BP 139/91
[2018-03-04 12:03] VITALS: BP 124/75
== END 2018-03-04 13:20 | disposition home health service (06) | DRG 682 ==
LOC: ER 14:24 → EROBS 16:57 → 2N 16:57 → ENTRNSPT 03-04 13:02 → EDTRNSPTSTS 03-04 13:11 → 2N 03-04 13:20
PROVIDERS: Emergency Medicine; Hospitalist; Nurse Practitioner Adult Health; Pediatrics
DX: N17.9 Acute kidney failure, unspecified (principal); E43 Unspecified severe protein-calorie malnutrition; M35.1 Other overlap syndromes; D61.818 Other pancytopenia; I38 Endocarditis, valve unspecified; I13.0 Hypertensive heart and chronic kidney disease with heart failure and stage 1 through stage 4 chronic kidney disease, or unspecified chronic kidney disease; I48.0 Paroxysmal atrial fibrillation; N18.3 Chronic kidney disease, stage 3 (moderate); I50.9 Heart failure, unspecified; J45.909 Unspecified asthma, uncomplicated; I25.10 Atherosclerotic heart disease of native coronary artery without angina pectoris; E78.5 Hyperlipidemia, unspecified; E03.9 Hypothyroidism, unspecified; M19.90 Unspecified osteoarthritis, unspecified site; E11.22 Type 2 diabetes mellitus with diabetic chronic kidney disease; J44.9 Chronic obstructive pulmonary disease, unspecified; I27.20 Pulmonary hypertension, unspecified; D46.9 Myelodysplastic syndrome, unspecified; K21.9 Gastro-esophageal reflux disease without esophagitis; E86.9 Volume depletion, unspecified; I34.0 Nonrheumatic mitral (valve) insufficiency; Z90.710 Acquired absence of both cervix and uterus; Z90.49 Acquired absence of other specified parts of digestive tract; Z87.81 Personal history of (healed) traumatic fracture; I25.2 Old myocardial infarction; Z95.1 Presence of aortocoronary bypass graft; Z98.49 Cataract extraction status, unspecified eye; Z87.11 Personal history of peptic ulcer disease; Z88.0 Allergy status to penicillin; Z88.2 Allergy status to sulfonamides; Z88.8 Allergy status to other drugs, medicaments and biological substances; Z91.041 Radiographic dye allergy status; Z85.3 Personal history of malignant neoplasm of breast; Z92.21 Personal history of antineoplastic chemotherapy; Z92.3 Personal history of irradiation; Z68.24 Body mass index [BMI] 24.0-24.9, adult
CPT/HCPCS: 10081

== ENCOUNTER 2018-03-29 12:50 | Inpatient (IN) | payer OTHER ==
[~2018-03-29] VITALS: Ht 149.9 cm; Wt 55.4 kg
--- NOTE | ~2018-03-29 | HC ---
[facility] [address] [place] [address] CONSULTATION Name: [address] Room #: 212-P ADM IN M.R.#: [id number] Admission: 03/29/18 Attend Phys: Gabbie Cuellar Discharge: Date of : 30 Report #: [id number] THIS REPORT FOR: //name// CC: Gabbie Cuellar Jose Tom DATE OF SERVICE: 04/01/2018 NEPHROLOGY CONSULTATION REASON FOR CONSULTATION: Chronic kidney disease. HISTORY OF PRESENT ILLNESS: This 87-year-old patient with multiple severe medical problems, has known chronic kidney disease with elevated serum creatinines that have run in the range of 2-2.5, essentially over the last 7 years. She has multiple other problems and depending on the state of her health otherwise, the creatinine does go up and down, but has really been remarkably stable to the point that her current creatinine is 2.4, but was only 1.6 at the time of admission, which for her is actually rather well. At this time, she is admitted with rather severe pneumonia, which had been refractory to 2 courses of outpatient antibiotics and she is more or less holding on her own. PAST MEDICAL HISTORY: She has had previous coronary bypass, MIs and stents. She has had recurrent atrial fibrillation with occasionally RVR. She has myelodysplastic syndrome and has been getting chemotherapy, I am not sure exactly what recently. She has a history of diabetes mellitus, previous history of breast cancer with resection, total hip replacement, previous colon resection, history of previous GI bleeding and rotator cuff surgery. She also carries a diagnosis of COPD. FAMILY HISTORY: Remarkable for heart disease, cancer, and diabetes. SOCIAL HISTORY: No cigarettes or alcohol. Lives at home with her and tries to take care of him. He has severe circulatory issues with chronic leg ulcers and foot ulcers and has been on hospice of late. ALLERGIES: REPORTEDLY TO SULFA DRUGS AND PENICILLINS. HOME MEDICATIONS: Include anastrozole 1 mg daily, Tenormin 50 mg b.i.d., Symbicort, vitamin D, Welchol mg daily, Cardizem-CD 360 mg daily, hydrocodone, levothyroxine 0.05 mg daily, Paxil 10 mg daily and torsemide 20 mg daily. REVIEW OF SYSTEMS: GENERAL: She has been feeling poorly and ill. EYES: Vision reasonably good. [facility] [address] [place] [address] CONSULTATION Name: [address] Room #: [address] [place] [address] IN M.R.#: [id number] Admission: 03/29/18 Attend Phys: Gabbie Cuellar Discharge: Date of : 30 Report #: [id number] ENT: Hearing okay, swallows okay. No mouth sores. ENDOCRINE: Positive for the diabetes and thyroid disease. RESPIRATORY: Somewhat short winded with a cough. CARDIAC: No current chest pains or palpitations. GASTROINTESTINAL: Has had a history of GI bleed, but not recently and appetite is okay. She is not throwing up. No bloody stool. GENITOURINARY: Reasonably good stream without dysuria, but she has had quite a history of kidney stones when she was young. NEUROLOGIC: No seizure, syncope or stroke, but she is just having some generalized weakness. PHYSICAL EXAMINATION: GENERAL: A frail, thin elderly patient, but medically quite lucid, giving an excellent history. SKIN: Otherwise unremarkable. SKELETAL: Well developed, well nourished. HEENT: Extraocular movements are full. Vision grossly intact. No scleral icterus. Hearing intact. Mucous membranes moist. Tongue, buccal mucosa benign. NECK: Supple. CHEST: Shows diminished breath sounds at the bases with rhonchi. HEART: Irregular. ABDOMEN: Soft. EXTREMITIES: Show no edema. Pulses are slightly diminished. LABORATORY DATA: Creatinine is 2.4, BUN 67. Electrolytes were okay. Phosphorus is 5. Hemoglobin 8.5 and platelets only 64. White count 3.8. ASSESSMENT AND PLAN: Chronic kidney disease. She has chronic kidney disease, creatinine exacerbating at times depending on her overall state of health on medications she is receiving. She has had multiple acute illnesses of late including the current bout with pneumonia. There is really no specific treatment I believe. She has had a renal sonogram in the past, which was okay, although that was 7 years ago. I will be checking urine studies just for completeness, but at this point, this appears to be rather chronic and relatively stable and the treatment should involve treatment of her underlying conditions and not her renal disease per se. By: 1311 1845 Ethan Lawrence MD /nt
[~2018-03-29 12:50] MED LIST changes: +ANASTROZOLE1 MG PO; +ATENOLOL 50MG T50 M1 PO; +CARDIZEM CD120 MG PO; +CARDIZEM CD240 MG PO; +CEFUROXIME250 MG PO; +DEMADEX20 MG PO; +PAXIL10 MG; +PREDNISONE 20 M20 MG PO
[2018-03-29 13:31] LABS: HEMATOCRIT 35.4 % (37.0-47.0); HEMOGLOBIN 11.7 gm/dL (12.0-15.0); MCH 32.8 pg (26.0-34.0); MCHC 33.1 g/dL (28.0-37.0); MCV 99.2 fL (80.0-100.0); PLATELET COUNT 104 thou/uL (150-400); RBC 3.57 mil/uL (4.20-5.00); RDW 17.2 % (10.5-14.5); WBC 5.4 thou/uL (4.0-11.0)
[2018-03-29 13:40] LABS: BE(vivo) -3.6 mmol/L (-2 to +3); PCO2 36.6 mmHg (35.0-45.0); PO2 192.6 mmHg (80.0-100.0); pH 7.377 (7.360-7.450); sO2 99.3 % (92.0-98.0)
[2018-03-29 13:44] LABS: ANION GAP 12 mmol/L (7-16); BUN 56 mg/dL (7-18); CALCIUM 9.2 mg/dL (8.5-10.1); CHLORIDE 102 mmol/L (98-107); CO2 24 mmol/L (21-32); CREATININE 1.6 mg/dL (0.6-1.0); GLUCOSE 282 mg/dL (74-106); POTASSIUM 4.1 mmol/L (3.5-5.1); SODIUM 138 mmol/L (136-145)
[2018-03-29 13:53] LABS: ALBUMIN 3.1 g/dL (3.4-5.0); MAGNESIUM 1.9 mg/dL (1.8-2.4); SGOT 23 U/L (15-37); SGPT 33 U/L (30-65); TOTAL BILIRUBIN 0.4 mg/dL (<0.1-1.0); TROPONIN-I <0.06 ng/mL (<0.06)
[2018-03-29 14:22] LABS: ABSOLUTE NEUTROPHILS 3.6 thou/uL (1.4-8.2)
[2018-03-29 14:24] LABS: ANISOCYTOSIS 1+; LARGE PLATELETS FEW
[2018-03-29 14:54] LABS: APTT 22.9 Seconds (24.5-32.8); PROTIME 10.9 Seconds (9.3-11.4)
[2018-03-29 15:28] VITALS: BP 133/68
[2018-03-29 16:13] VITALS: BP 121/103
[2018-03-29 16:43] LABS: CLARITY SLIGHTLY CLOUDY; COLOR YELLOW; SOURCE LEFT CHEST; TOTAL VOLUME 60 mL
[2018-03-29 16:54] LABS: BF NUCLEATED CELLS 498; BF RBC 317
[2018-03-29 17:42] LABS: BF MACROPHAGE 30; BF NEUTROPHILS 5
[2018-03-29 21:00] VITALS: BP 105/63
[2018-03-30] VITALS (12 sets, daily range): BP systolic 72–120; BP diastolic 39–69
--- NOTE | 2018-03-30 09:59 | EKG ---
[address] [employer] [place] [address] ELECTROCARDIOGRAM REPORT Name: [address] Room #: 212-P ADM IN M.R.#: [id number] Admission: 03/29/18 Attend Phys: Gabbie Cuellar Discharge: Date of : 30 Report #: [id number] THIS REPORT FOR: //name// [facility] ED Test Date: 2018-03-29 Test Time: 13:03:24 Pat Name: S[address] Department: Room: [facility] Gender: F Foreign Student Adviser Teacher: PATRICIA : 1930 Requested By: Trevor Eli Order Number: [id number] MD: Kyrie Chu Measurements Intervals [place] Rate: 140 P: [place]: QRS: 45 QRSD: 86 T: 186 QT: 282 QTc: 431 Interpretive Statements Atrial fibrillation Repolarization abnormality, prob rate related Baseline wander in lead(s) V2 Compared to ECG 02/27/2018 14:32:35 No significant changes Electronically Signed On 03-30-2018 9:58:49 MEAL MILLER by Kyrie Chu [email or web address] <ELECTRONICALLY SIGNED> By: Kyrie Chu MD, [facility] 03/30/18 0958 130 130 Kyrie Chu MD, [facility] /EPI
--- NOTE | 2018-03-30 10:01 | EKG ---
[address] [address] ELECTROCARDIOGRAM REPORT Name: [address] Room #: 212- ADM IN M.R.#: [id number] Admission: 03/29/18 Attend Phys: Gabbie Cuellar Discharge: Date of : 30 Report #: [id number] THIS REPORT FOR: //name// [facility] Test Date: 2018-03-29 Test Time: 16:36:43 Pat Name: S[address] Department: Room: 212 Gender: F Healthcare Manager: ANN MARIE : 1930 Requested By: Gabbie Cuellar Order Number: [id number] MD: Kyrie Chu Measurements Intervals [place] Rate: 131 P: [place]: QRS: 7 QRSD: 84 T: 165 QT: 322 QTc: 476 Interpretive Statements Atrial fibrillation Repolarization abnormality, prob rate related Baseline wander in lead(s) V3 Compared to ECG 02/27/2018 14:32:35 No significant changes Electronically Signed On 03-30-2018 10:01:05 WASHHOUSE HAND by Kyrie Chu [email or web address] <ELECTRONICALLY SIGNED> By: Kyrie Chu MD, [facility] 03/30/18 1001 163 35 Kyrie Chu MD, [facility] /EPI
--- NOTE | 2018-03-30 10:18 | EKG ---
[address] [email or web address] [address] ELECTROCARDIOGRAM REPORT Name: [address] Room #: 212-P ADM IN M.R.#: [id number] Admission: 03/29/18 Attend Phys: Gabbie Cuellar Discharge: Date of : 30 Report #: [id number] THIS REPORT FOR: //name// [facility] Test Date: 2018-03-30 Test Time: 10:16:12 Pat Name: [address] Department: Room: 212 Gender: F Security Threat Analyst: elizabeth : 1930 Requested By: John Dias Order Number: [id number] MD: Kyrie Chu Measurements Intervals [place] Rate: 123 P: [place]: QRS: 17 QRSD: 85 T: 166 QT: 328 QTc: 470 Interpretive Statements Atrial fibrillation Probable LVH with secondary repol abnrm Compared to ECG 03/29/2018 16:36:43 No significant changes Electronically Signed On 03-30-2018 10:18:09 LAWYER PROBATE by Kyrie Chu [email or web address] <ELECTRONICALLY SIGNED> By: Kyrie Chu MD, [facility] 03/30/18 1018 1016 1016 Kyrie Chu MD, [facility] /EPI
[2018-03-30 11:06] LABS: BODY FLUID ALBUMIN 0.6 g/dL (()); BODY FLUID AMYLASE 21 U/L (()); BODY FLUID GLUCOSE 269 mg/dL (()); BODY FLUID LDH 62 IU/L (()); BODY FLUID PROTEIN 1.3 g/dL (())
[2018-03-30 20:17] LABS: CALCIUM 8.3 mg/dL (8.5-10.1); CREATININE 1.9 mg/dL (0.6-1.0); POTASSIUM 4.2 mmol/L (3.5-5.1)
[2018-03-31 04:25] LABS: HEMATOCRIT 28.1 % (37.0-47.0); MCH 33.2 pg (26.0-34.0); MCHC 32.8 g/dL (28.0-37.0); MCV 101.2 fL (80.0-100.0); RBC 2.78 mil/uL (4.20-5.00); RDW 17.1 % (10.5-14.5); WBC 3.7 thou/uL (4.0-11.0)
[2018-03-31 04:29] LABS: HEMOGLOBIN 9.2 gm/dL (12.0-15.0)
[2018-03-31 04:35] VITALS: BP 118/46
[2018-03-31 07:44] VITALS: BP 91/32
[2018-03-31 09:45] VITALS: BP 100/59
[2018-03-31 10:40] VITALS: BP 133/87
[2018-03-31 15:11] VITALS: BP 115/47
[2018-03-31 20:49] VITALS: BP 116/45
[2018-04-01 02:57] LABS: HEMATOCRIT 26.1 % (37.0-47.0); HEMOGLOBIN 8.5 gm/dL (12.0-15.0); MCH 32.8 pg (26.0-34.0); MCHC 32.7 g/dL (28.0-37.0); MCV 100.4 fL (80.0-100.0); RBC 2.6 mil/uL (4.20-5.00); RDW 17.3 % (10.5-14.5); WBC 3.8 thou/uL (4.0-11.0)
[2018-04-01 03:02] LABS: ALBUMIN 2.4 g/dL (3.4-5.0); CALCIUM 8.4 mg/dL (8.5-10.1); CREATININE 2.4 mg/dL (0.6-1.0); POTASSIUM 4.2 mmol/L (3.5-5.1)
[2018-04-01 04:39] VITALS: BP 104/40
[2018-04-01 07:40] VITALS: BP 105/50
[2018-04-01 09:33] VITALS: BP 105/50
[2018-04-01 11:15] VITALS: BP 99/49
[2018-04-01 15:50] VITALS: BP 104/47
[2018-04-01 20:00] VITALS: BP 130/95
[2018-04-01 20:22] LABS: URINE CLARITY CLEAR; URINE COLOR YELLOW
[2018-04-01 20:23] LABS: PROT/CREAT RATIO 0.3; URINE BILIRUBIN NEGATIVE (Negative); URINE BLOOD NEGATIVE (Negative); URINE CREATININE-RANDOM* 123.8 mg/dL; URINE GLUCOSE-RANDOM* TRACE (Negative); URINE KETONES NEGATIVE (Negative); URINE LEUKOCYTES NEGATIVE (Negative); URINE NITRITE NEGATIVE (Negative); URINE PROTEIN (DIPSTICK) TRACE (Negative); URINE PROTEIN-RANDOM* 35.8 mg/dL (<11.9); URINE SPECIFIC GRAVITY > 1.030 (1.005-1.035); URINE UROBILINOGEN 0.2 E.U./dl (0.2-1.0)
[2018-04-02 04:38] LABS: ABSOLUTE NEUTROPHILS 3.5 thou/uL (1.4-8.2); EOSINOPHILS 0.5 % (0.0-3.0); HEMATOCRIT 25.4 % (37.0-47.0); HEMOGLOBIN 8.3 gm/dL (12.0-15.0); LYMPHOCYTES 10.9 % (24.0-44.0); MCH 32.6 pg (26.0-34.0); MCHC 32.8 g/dL (28.0-37.0); MCV 99.3 fL (80.0-100.0); MONOCYTES 9.9 % (1.0-8.0); PLATELET COUNT 65 thou/uL (150-400); POLYS 77.7 % (36.0-66.0); RBC 2.56 mil/uL (4.20-5.00); RDW 16.9 % (10.5-14.5); WBC 4.5 thou/uL (4.0-11.0)
[2018-04-02 04:45] LABS: ALBUMIN 2.6 g/dL (3.4-5.0); CALCIUM 8.4 mg/dL (8.5-10.1); CREATININE 2.1 mg/dL (0.6-1.0); PHOSPHORUS 4.1 mg/dL (2.5-4.9); POTASSIUM 4.1 mmol/L (3.5-5.1)
[2018-04-02 05:21] VITALS: BP 111/46
[2018-04-02 07:15] VITALS: BP 129/54
[2018-04-02 11:25] VITALS: BP 116/69
[2018-04-02 12:10] VITALS: BP 105/42
--- NOTE | 2018-04-02 13:08 | PATH ---
[facility] [address] [place] [address] PATHOLOGY RPT PROCEDURE Name: [address] Room #: 212-P ADM IN M.R.#: [id number] Admission: 03/29/18 Date of : 30 Discharge: Report #: [id number] Path Case #: [id number] Note [facility] Accession Number: [id number] TESTS RESULT FLAG UNITS REF RANGE LAB Clinician Provided Cytology Information No. of containers..01 Other (Miscellaneous) Source: 01 PLEURAL FLUID DIAGNOSIS: 02 PLEURAL FLUID NEGATIVE FOR MALIGNANT CELLS. REACTIVE MESOTHELIAL CELLS ARE PRESENT. THIS INTERPRETATION INCLUDES EVALUATION OF A CELL BLOCK. MIXED INFLAMMATORY CELLS PRESENT IN THE BACKGROUND. Signed out by: Yuliana De Santiago MD, Pathologist NPI- [id number] Performed by: Reanna Radford, [employer] ([facility]) Gross description: 01 25ML, YELLOW, CLOUDY /LCS FLAG LEGEND: L-Low Normal,H-High Normal,LL-Alert Low,HH-Alert High <-Panic Low,>-Panic High,A-Abnormal,AA-Critical Abnormal Performed at: [address] [place] [address] Shun Blackburn MD, [address] [address] Yuliana De Santiago MD, Specimen Comment: A courtesy copy of this report has been sent to Specimen Comment: [phone]. Specimen Comment: Report sent to Specimen Comment: A duplicate report has been generated due to demographic updates. Performed at: [address], [place], [place] [id number] MD Shun Blackburn MD Phone: [phone]
[2018-04-02 15:30] VITALS: BP 120/61
[2018-04-02 20:06] VITALS: BP 135/57
[2018-04-03 04:24] VITALS: BP 136/44
[2018-04-03 06:00] LABS: HEMATOCRIT 26.6 % (37.0-47.0); HEMOGLOBIN 8.8 gm/dL (12.0-15.0); MCH 33.1 pg (26.0-34.0); MCHC 33.1 g/dL (28.0-37.0); MCV 99.9 fL (80.0-100.0); RBC 2.67 mil/uL (4.20-5.00); RDW 17.6 % (10.5-14.5)
[2018-04-03 07:40] LABS: ALBUMIN 2.9 g/dL (3.4-5.0); CALCIUM 8.8 mg/dL (8.5-10.1); CREATININE 1.8 mg/dL (0.6-1.0); MAGNESIUM 1.7 mg/dL (1.8-2.4); POTASSIUM 4.5 mmol/L (3.5-5.1); TOTAL BILIRUBIN 0.5 mg/dL (<0.1-1.0); TOTAL PROTEIN 6.2 g/dL (6.4-8.2)
[2018-04-03 08:00] VITALS: BP 136/48
[2018-04-03 11:48] VITALS: BP 140/90
[2018-04-03 16:00] VITALS: BP 139/52
[2018-04-03 19:44] VITALS: BP 152/72
[2018-04-03 23:33] VITALS: BP 140/58
[2018-04-04 03:45] VITALS: BP 140/57
[2018-04-04 05:30] LABS: ALBUMIN 2.8 g/dL (3.4-5.0); CALCIUM 8.8 mg/dL (8.5-10.1); CREATININE 1.5 mg/dL (0.6-1.0); PHOSPHORUS 3.6 mg/dL (2.5-4.9); POTASSIUM 3.7 mmol/L (3.5-5.1)
[2018-04-04 07:55] VITALS: BP 142/119
--- NOTE | 2018-04-04 08:03 | 2DMMODE ---
[facility] [address] [address] 2 D/M-MODE ECHOCARDIOGRAM Name: [address] Room #: 212-P ADM IN M.R.#: [id number] Admission: 03/29/18 Attend Phys: Gabbie Aleman Discharge: Date of : 30 Date of Service: 04/04/18 0803 Report #: [id number] THIS REPORT FOR: //name// APPROVED REPORT Study performed: 04/03/2018 10:38:36 EXAM: Limited 2D, Doppler, and color-flow Echocardiogram Patient Location: Bedside Room #: 212 Status: on-call BSA: 1.49 HR: 118 bpm BP: 136/48 mmHg Rhythm: Atrial Fibrillation Other Information Study Quality: Adequate Risk Factors: Cardiac Risk Factors: HTN, Hyperlipidemia Indications Atrial Fibrillation Dyspnea S/P CABG x4 (2011) 2D Dimensions IVSd: 9.44 (7-11mm) LVDd: 36.53 mm PWd: 9.53 (7-11mm) LVDs: 25.25 (25-40mm) Left Atrium: 48.28 (27-40mm) LV Single Plane 4CH: 62.34 % LV Single Plane 2CH: 52.34 % Biplane EF: 59.9 % Aortic Valve AoV Peak Estuardo.: 1.74 m/s AO Peak Gr.: 13.76 mmHg Tricuspid Valve TR Peak Estuardo.: 3.84 m/s RAP Estimate: 15.00 mmHg TR Peak Gr.: 59.13 mmHg PA Pressure: 74.00 mmHg [facility] [address] [place] [address] 2 D/M-MODE ECHOCARDIOGRAM Name: [address] Room #: 212-P ADM IN M.R.#: [id number] Admission: 03/29/18 Attend Phys: Gabbie Aleman Discharge: Date of : 30 Date of Service: 04/04/18 0803 Report #: [id number] Left Ventricle Left ventricle is grossly normal size. There is normal left ventricular wall thickness. Left ventricular systolic function is normal. LVEF is 55-60%. Right Ventricle Right ventricle is dilated. Right ventricular systolic function is reduced. Atria Left atrium is dilated. Right atrium is dilated. Aortic Valve Aortic valve is calcified. Mild aortic regurgitation. Mitral Valve There is mitral annular calcification. Moderate to severe mitral regurgitation. Tricuspid Valve The tricuspid valve is normal in structure. Moderate to severe tricuspid regurgitation. The pulmonary artery pressure is 74 mmHg. Pulmonic Valve The pulmonary valve is normal in structure. Mild pulmonic regurgitation. Great Vessels IVC is dilated and collapses <50% with inspiration. Pericardium There is no pericardial effusion. A large pleural effusion is present. <Conclusion> Left ventricle is grossly normal size. Left ventricular systolic function is normal. LVEF is 55-60%. Right ventricle is dilated. Right ventricular systolic function is reduced. Left atrium is dilated. Right atrium is dilated. Aortic valve is calcified. Mild aortic regurgitation. [facility] [address] [place] [address] 2 D/M-MODE ECHOCARDIOGRAM Name: [address] Room #: 212-P ADM IN M.R.#: [id number] Admission: 03/29/18 Attend Phys: Gabbie Aleman Discharge: Date of : 30 Date of Service: 04/04/18802 Report #: [id number] Moderate to severe mitral regurgitation. Moderate to severe tricuspid regurgitation. The pulmonary artery pressure is 74 mmHg. There is no pericardial effusion. A large pleural effusion is present. <ELECTRONICALLY SIGNED> By: Ethan Isbell MD, FACC 04/04/18802 2 2 Ethan Isbell MD, FACC /INF
[2018-04-04 12:10] VITALS: BP 116/62
[2018-04-04 16:15] VITALS: BP 146/67
[2018-04-04 21:20] VITALS: BP 132/53
[2018-04-05 03:59] VITALS: BP 121/71
[2018-04-05 08:18] VITALS: BP 133/67
[2018-04-05 09:15] LABS: CALCIUM 8.1 mg/dL (8.5-10.1); CREATININE 1.3 mg/dL (0.6-1.0); POTASSIUM 3.5 mmol/L (3.5-5.1)
[2018-04-05 10:23] LABS: HEMATOCRIT 29.2 % (37.0-47.0); MCH 34.3 pg (26.0-34.0); MCHC 34.2 g/dL (28.0-37.0); MCV 100.3 fL (80.0-100.0); RBC 2.92 mil/uL (4.20-5.00); RDW 17.8 % (10.5-14.5); WBC 5.4 thou/uL (4.0-11.0)
[2018-04-05 11:03] LABS: ABSOLUTE NEUTROPHILS 4.8 thou/uL (1.4-8.2); ANISOCYTOSIS 1+
[2018-04-05 11:05] LABS: LARGE PLATELETS FEW; PLATELET COUNT 92 thou/uL (150-400)
[2018-04-05 11:06] LABS: PLATELET ESTIMATE 150
[2018-04-05 12:00] VITALS: BP 117/47
[2018-04-05 16:00] VITALS: BP 116/47
[2018-04-05 20:19] VITALS: BP 140/63
[2018-04-06 03:38] LABS: HEMATOCRIT 24.8 % (37.0-47.0); HEMOGLOBIN 8.4 gm/dL (12.0-15.0); MCH 34.2 pg (26.0-34.0); MCV 100.5 fL (80.0-100.0); RBC 2.47 mil/uL (4.20-5.00); RDW 17.4 % (10.5-14.5); WBC 5.2 thou/uL (4.0-11.0)
[2018-04-06 03:50] LABS: CALCIUM 8.2 mg/dL (8.5-10.1); CREATININE 1.6 mg/dL (0.6-1.0); POTASSIUM 3.7 mmol/L (3.5-5.1)
[2018-04-06 04:45] VITALS: BP 107/61
[2018-04-06 07:25] VITALS: BP 128/65
[2018-04-06 11:45] VITALS: BP 105/34
[2018-04-06] MEDS ORDERED: IPRAT-ALBUT 0.5-3 ML INH (13:13)
[2018-04-06] MEDS ORDERED: METOPROLOL SUCC50 MG PO (13:13)
[2018-04-06] MEDS ORDERED: PACERONE 200 M200 M1 PO (13:13)
[2018-04-06 17:25] VITALS: BP 113/80
[2018-04-07 05:07] LABS: ADENOVIRUS Negative (Negative); INFLUENZA A Negative (Negative); INFLUENZA B Negative (Negative); METAPNEUMOVIRUS Negative (Negative); PARAINFLUENZA 1 Negative (Negative); PARAINFLUENZA 2 Negative (Negative); PARAINFLUENZA 3 Negative (Negative); RHINOVIRUS Negative (Negative); RSV A Negative (Negative); RSV B Negative (Negative)
== END 2018-04-06 17:29 | DRG 291 ==
LOC: ER 12:50 → 2N 14:16 → EROBS 14:16 → 2N 15:42
PROVIDERS: Emergency Medicine; Hospitalist; Internal Medicine Cardiovascular Disease; Internal Medicine Nephrology; Pediatrics; Physician Assistant; ADMIT Hospitalist
PROC: 0W9B3ZZ Drainage of Left Pleural Cavity, Percutaneous Approach (ICD-10-PCS; principal; 2018-03-29)
DX: I13.0 Hypertensive heart and chronic kidney disease with heart failure and stage 1 through stage 4 chronic kidney disease, or unspecified chronic kidney disease (principal); I50.33 Acute on chronic diastolic (congestive) heart failure; J96.90 Respiratory failure, unspecified, unspecified whether with hypoxia or hypercapnia; I48.1 Persistent atrial fibrillation; J90 Pleural effusion, not elsewhere classified; J44.1 Chronic obstructive pulmonary disease with (acute) exacerbation; N18.3 Chronic kidney disease, stage 3 (moderate); E11.22 Type 2 diabetes mellitus with diabetic chronic kidney disease; I25.10 Atherosclerotic heart disease of native coronary artery without angina pectoris; E78.5 Hyperlipidemia, unspecified; E03.9 Hypothyroidism, unspecified; M19.90 Unspecified osteoarthritis, unspecified site; D46.9 Myelodysplastic syndrome, unspecified; D69.6 Thrombocytopenia, unspecified; I48.0 Paroxysmal atrial fibrillation; I27.20 Pulmonary hypertension, unspecified; Z90.710 Acquired absence of both cervix and uterus; I25.2 Old myocardial infarction; Z95.5 Presence of coronary angioplasty implant and graft; Z87.01 Personal history of pneumonia (recurrent); Z92.21 Personal history of antineoplastic chemotherapy; Z85.3 Personal history of malignant neoplasm of breast; Z85.828 Personal history of other malignant neoplasm of skin; Z87.81 Personal history of (healed) traumatic fracture; Z95.1 Presence of aortocoronary bypass graft; Z98.42 Cataract extraction status, left eye; Z98.41 Cataract extraction status, right eye; Z79.899 Other long term (current) drug therapy; Z91.041 Radiographic dye allergy status; Z88.0 Allergy status to penicillin; Z88.2 Allergy status to sulfonamides; Z88.8 Allergy status to other drugs, medicaments and biological substances; Z91.048 Other nonmedicinal substance allergy status; Z82.49 Family history of ischemic heart disease and other diseases of the circulatory system; Z83.3 Family history of diabetes mellitus; Z80.3 Family history of malignant neoplasm of breast
CPT/HCPCS: 10081